=== PATIENT | female | born 1960 | race African-American/Black ===

== ENCOUNTER 2018-07-17 20:00 | Emergency (ER) | payer MEDICAID ==
[2018-07-17 20:06] VITALS: BP 146/91
--- NOTE | 2018-07-17 20:16 | EDPHY ---
H & P Time Seen by Provider: 07/17/18 20:09 HPI/ROS: CHIEF COMPLAINT: Wound check HISTORY OF PRESENT ILLNESS: 58-year-old female history of diabetes postop day 4 post right 4th toe and left for 2nd 3rd toe surgical amputation secondary to history of complications from diabetes who, performed at [facility], walked to the ER for wound check. She tripped and stubbed her feet today wants to ensure that the wounds are not infected or have dehisced. She has no complaints of underlying pain.. No fall from height. Bandages in place. PHYSICAL EXAM (Prior to examination, patient consented to physical exam, hands were washed and my usual and customary physical exam procedures followed) 1) GENERAL: Well-developed, well-nourished, alert and oriented. Appears to be in no acute distress. 2) HEAD: Normocephalic 3) HEENT: sclera anicteric 4) LUNGS: Breathing comfortably. 5) SKIN: bilateral feet wounds are granulating appropriately with no dehiscence , no foul smell, no signs of infection, no erythema, no underlying discomfort. Smoking Status: Former smoker Constitutional: Initial Vital Signs Temperature (C) 36.4 C 07/17/18 20:02 Heart Rate 97 07/17/18 20:02 Respiratory Rate 18 07/17/18 20:02 Blood Pressure 146/91 H 07/17/18 20:02 O2 Sat (%) 97 07/17/18 20:02 O2 Delivery Mode Room Air Allergies/Adverse Reactions: cefaclor [From [facility]] Allergy (Verified 07/17/18 20:06) Home Medications: Medication Instructions Recorded Albuterol 07/17/18 Atrovent Hfa (*) 07/17/18 Levemir 07/17/18 Prozac 10 MG (*) 07/17/18 Wellbutrin Sr 07/17/18 novoLOG 07/17/18 traZODone 07/17/18 MDM/Departure - Depart Disposition: Home, Routine, Self-Care Clinical Impression: Visit for wound check Condition: Good Instructions: Care For Your Stitches (ED) Additional Instructions: Return to the ER if you develop redness, swelling, discharge, warmth to the wound, red streaks going up your leg, or any other symptoms that concern you. Referrals: Follow-up, with your r surgeon at [facility] in 2 days [Other] - As per Instructions
== END 2018-07-17 20:51 | disposition home or self-care (01) ==
DX: Z48.00 Encounter for change or removal of nonsurgical wound dressing (principal); Z89.422 Acquired absence of other left toe(s); E11.9 Type 2 diabetes mellitus without complications

== ENCOUNTER 2018-09-07 12:12 | Emergency (ER) | payer MEDICAID ==
[2018-09-07] MEDS ORDERED: amLODIPine BESYLATE 5 MG TAB PO ONE (14:19)
--- NOTE | 2018-09-07 14:23 | EDPHY ---
H & P Stated Complaint: pt needs refil of inhalers/bp meds htn/whaley inf bilat toes Time Seen by Provider: 09/07/18 13:54 HPI/ROS: CHIEF COMPLAINT: Medication refill, concern for foot infection HISTORY OF PRESENT ILLNESS: 58-year-old female with hypertension, diabetes and oxygen-dependent COPD presents for a medication refill and concern for foot infection. She recently moved from [place] to [employer] and is staying in the senior care. She ran out of her usual blood pressure medications as well as her COPD a medications. She is also concerned about a possible foot infection. However, there is no drainage, erythema or tenderness of either foot. No fever. REVIEW OF SYSTEMS: complete 10 point ROS reviewed and is negative except for the noted elements in the HPI - Personal History Current Tetanus Diphtheria and Acellular Pertussis (TDAP): Yes - Medical/Surgical History Hx Asthma: No Hx Chronic Respiratory Disease: Yes Hx Diabetes: Yes Hx Cardiac Disease: No Hx Renal Disease: No Hx Cirrhosis: No Hx Alcoholism: No Hx HIV/AIDS: No Hx Splenectomy or Spleen Trauma: No Other PMH: bilateral toe amputations, DM, h pyloric, neuropathy, soraya, COPD htn asthma cirrhosis of liver - Social History Smoking Status: Former smoker Alcohol Use: Sober - Physical Exam Exam: General Appearance: Alert, pleasant Eyes: Pupils equal and round, no conjunctival pallor ENT, Mouth: Mucous membranes moist Neck: Normal inspection Respiratory: Lungs are clear to auscultation Cardiovascular: Regular rate and rhythm Gastrointestinal: Abdomen is soft and nontender Neurological: A&O, nonfocal exam Skin: Warm and dry Extremities: Right foot-amputations of the 2nd and 3rd toes, no erythema, warmth or drainage; left foot-amputations of the 1st 3 toes, no erythema, warmth or drainage Psychiatric: Fluctuating affect Constitutional: Initial Vital Signs Temperature (C) 37.3 C 09/07/18 12:30 Heart Rate 84 09/07/18 12:30 Respiratory Rate 18 09/07/18 12:30 Blood Pressure 180/92 H 09/07/18 12:30 O2 Sat (%) 92 09/07/18 12:30 O2 Delivery Mode Room Air Allergies/Adverse Reactions: cefaclor [From [facility]] Allergy (Verified 09/07/18 12:29) Home Medications: Medication Instructions Recorded Albuterol 07/17/18 Atrovent Hfa (*) 07/17/18 Levemir 07/17/18 Prozac 10 MG (*) 07/17/18 Wellbutrin Sr 07/17/18 novoLOG 07/17/18 traZODone 07/17/18 Albuterol [Proventil Inhaler HFA 2 puffs IH QID PRN #1 mdi 09/07/18 (*)] Beclomethasone Qvar 40 [Qvar 40 1 inh IH BID #1 mdi 09/07/18 Redihaler (*)] Cephalexin [Keflex (*)] 500 mg PO TID #21 cap 09/07/18 Fluticasone Propionate [Flovent 1 puffs IH DAILY #1 aer.w.adap 09/07/18 Hfa] Lisinopril 09/07/18 Medical Decision Making - Diagnostics Imaging Results: XRays bilateral feet: no evidence of osteomyelitis Imaging: I viewed and interpreted images myself ED Course/Re-evaluation: This pt presents for refill of medications and d/t concern for foot infection. No evidence of infection on exam. Keflex prescribed in case of worsening sx. Pt given her usual BP meds in ED, Lisinopril and Norvasc. Prescriptions written. - Data Points Medications Given: Discontinued Medications Amlodipine Besylate (Norvasc) 10 mg PO EDNOW ONE Stop: 09/07/18 14:20 Last Admin: 09/07/18 14:32 Dose: 10 mg Lisinopril (Zestril) 20 mg PO EDNOW ONE Stop: 09/08/18 14:20 Last Admin: 09/07/18 14:48 Dose: 20 mg Departure - Departure Disposition: Home, Routine, Self-Care Clinical Impression: Medication refill Hypertension Qualifiers: Hypertension type: essential hypertension Qualified Code(s): I10 - Essential ( primary) hypertension Condition: Good Instructions: Hypertension (ED), Medicine Refill (ED) Additional Instructions: There is no sign of foot infection today. Keep your appointment on Monday. Return with any concerns. Referrals: María Bailon PA [Primary Care Provider] - As per Instructions (Keep your appointment on Monday.) Prescriptions: Albuterol [Proventil Inhaler HFA (*)] 2 puffs IH QID PRN #1 mdi PRN Reason: Short Of Breath/Dyspnea Beclomethasone Qvar 40 [Qvar 40 Redihaler (*)] 1 inh IH BID #1 mdi Cephalexin [Keflex (*)] 500 mg PO TID #21 cap Fluticasone Propionate [Flovent Hfa] 1 puffs IH DAILY #1 aer.w.adap
[2018-09-07] MEDS ORDERED: LISINOPRIL 20 MG TAB ONE (14:47)
[2018-09-07 14:58] VITALS: BP 174/105
[2018-09-08] MEDS ORDERED: LISINOPRIL 20 MG TAB PO ONE (14:19)
== END 2018-09-07 14:57 | disposition home or self-care (01) ==
DX: Z76.0 Encounter for issue of repeat prescription (principal); I10 Essential (primary) hypertension; J44.9 Chronic obstructive pulmonary disease, unspecified; E11.9 Type 2 diabetes mellitus without complications; Z99.81 Dependence on supplemental oxygen; Z87.891 Personal history of nicotine dependence

== ENCOUNTER 2018-09-11 10:47 | Emergency (ER) | payer MEDICAID ==
[2018-09-11] MEDS ORDERED: IPRATROPIUM/ALBUTEROL 3 ML DEYVIAL IH ONE (11:47)
[2018-09-11 12:32] LABS: PLATELET COUNT 233 10^3/uL (150-400)
--- NOTE | 2018-09-11 12:51 | EDPHY ---
General - History Smoking Status: Former smoker Time Seen by Provider: 09/11/18 11:22 Narrative: CLINICAL IMPRESSION: Shortness of breath, interstitial lung disease, hypokalemia ASSESSMENT/PLAN: 58-year-old female with past medical history of hypertension, diabetes, chronic neuropathy, COPD, and asthma, relatively new to our area presents to the emergency department for the 2nd time in 4 days complaining of dyspnea. Patient is asking numerous times for prednisone believing this is a COPD exacerbation. She reportedly used 5 L of oxygen prior to relocation to [place] and has been working with [facility] to reestablish oxygen therapy. She arrives saturating 91% on room air. She has been compliant with inhalers but reports these are not helping her symptoms. She did have surgery to amputate 3 toes 3 weeks ago secondary to diabetic foot infection. No reported history of DVT or PE but she does have obvious edema to both legs which she reports is chronic. EKG shows inverted T-waves V4 through V6, unfortunately no prior EKG is available for comparison. Troponin is negative. Labs reveal no leukocytosis but a significant hypokalemia at 2.7, normal renal function. D- dimer quite elevated at 2.5 , and patient has an elevated BNP over 1400. CT angiogram reveals no evidence of pulmonary embolism but confirms chest x-ray findings of severe interstitial edema, small bilateral pleural effusions, no evidence of pneumonia. Patient is afebrile. Case discussed with Dr. Luz and admission was highly recommended however patient has adamantly refused this. She is asking strictly for prednisone only and even refused nebulizer treatments in the ED. I have explained that I am not confident that outpatient oral prednisone will alleviate all of her symptoms. However she would like to follow up with [facility] tomorrow which I encouraged. I also emphasized the importance of establishing her oxygen therapy. She was given potassium replacement in the ED and a prescription for additional potassium replacement at home. I discussed the risks of persistent or worsening hypokalemia. Patient was strongly encouraged to see PCP and have very low threshold for return to ED sooner for worsening symptoms as outlined in person and discharge papers. DIFFERENTIAL DX: Differential diagnosis includes but not limited to myocardial ischemia, pulmonary embolus, chest wall pain, COPD exacerbation, asthma exacerbation, pleural inflammation, musculoskeletal chest wall pain, aortic aneurysm, and pulmonary infectious causes. ED PROCEDURES: See lab and/or imaging results below ED COURSE: Seen and assessed by myself. Patient feels she is having is an exacerbation of COPD. However complains of orthopnea, dyspnea on exertion, chest discomfort, shortness of breath, and chronic lower extremity edema. Plan for EKG, IV, labs , chest x-ray, D-dimer, BNP 2:00 p.m.: CT scan read by Radiology. No evidence of pulmonary embolism. Severe interstitial lung disease noted, interstitial edema and small pleural effusions noted. Viral versus infectious. EKG with inverted T-waves V4 through V6 reviewed with Dr. Luz. Troponin 0.03. BNP elevated at 1400. Hypokalemia with potassium of 2.7, oral potassium replacement ordered here. Discussed and recommended admission with the patient who has refused. She would like to follow up with her primary care provider, María, at [facility] tomorrow. She has agreed to an initial IV dose of steroid here as well as a prescription for prednisone and potassium replacement. I have emphasized the importance of primary care follow-up in 24 hr without fail and patient agrees to contact them. Very low threshold for return to ED sooner as outlined in person and discharge papers. Case discussed at length with Dr. Luz. CHIEF COMPLAINT: Shortness of breath HPI: 58-year-old female with a history of diabetes, hypertension, COPD and asthma presents to the emergency department with 2 days of increased shortness of breath, orthopnea, chest discomfort, and dyspnea on exertion. Patient is 3 weeks postop amputation of several toes on the right foot secondary to diabetic foot infection. She had wound dressing placed yesterday and sutures removed yesterday. She has noted increased shortness of breath over the last 2 days associated with discomfort in the chest, difficulty lying flat, and feels as though she is having an exacerbation of her COPD. She has been compliant with her prescribed inhalers but reports "they are not working". She did not take a nebulizer treatment today. She is here requesting prednisone because that worked for her exacerbations in the past. She has not taken this for many years. She reports her glucose has been running in the 160s. No reported history of a DVT or PE. She reports chronic lower extremity swelling that she does not believe this changed or different. She does not report cardiac history. She states she quit smoking recently. She does not drink alcohol. PAST MEDICAL HISTORY: Hypertension, diabetes, diabetic foot infection requiring amputation, neuropathy , COPD, asthma See nurse/triage notes for additional history if applicable Pertinent Past Surgical History: Amputation of toes on both feet secondary to diabetes Family History: None reported Social History: Former smoker REVIEW OF SYSTEMS: All other systems negative Constitutional: No fever, no chills, appetite change. Eyes: No discharge, vision change ENT: No sore throat, congestion, ear pain. Cardiovascular: Positive for chest pain, no palpitations.] Respiratory: Positive for cough and shortness of breath. Gastrointestinal: No abdominal pain, no vomiting, diarrhea. Genitourinary: No hematuria, dysuria, flank pain, pelvic pain Musculoskeletal: No back pain, joint swelling, joint pain, myalgias. Skin: No rashes, color change. Neurological: No headache, dizziness, weakness. PHYSICAL EXAM: General Appearance: Alert, oriented, appropriate, cooperative, overweight NAD, well hydrated, non-toxic appearing, 91% on room air, respiratory rate of 22, afebrile no hypoxia. HEENT: TMs are clear bilaterally no perforation or FB, no injection, no evidence of serous or mucopurulent otitis. Oropharynx clear is no erythema or exudates, no tonsillar hypertrophy or asymmetry. Dentition without abnormality. Eyes: PERRLA, no acute vision change, nystagmus, swelling, discharge, pain or photosensitivity. Conjunctiva pink, no pallor or injection Neck: Supple, nontender, no lymphadenopathy, no midline pain, FROM, no meningismus. Respiratory: Diminished breath sounds throughout Cardiac: Regular rate and rhythm, no murmurs or gallops. Gastrointestinal: Abdomen is soft, nontender, bowel sounds normal, no masses/ hernia, no rigidity, guarding or focal peritoneal findings. Neurological: [ Alert and oriented x 3, CN 2-12 grossly intact Skin: Warm, dry, no rashes, no nodules on palpation. Musculoskeletal: Extremities are symmetrical, full range of motion, no tenderness, pitting edema noted to left greater than right extremity. No calf pain, swelling or warmth. deformity, swelling, or erythema. Psychiatric: Patient is oriented X 3, there is no agitation. MEDICAL DECISION MAKING: Patient was seen independently. Secondary supervising physician at time of evaluation was Dr. Luz. Diagnosis: Severe interstitial lung disease, shortness of breath, orthopnea, dyspnea on exertion, hypokalemia. New, requires workup Summary: See Assessment and Plan for summary of ED visit Clinical lab tests: ordered / reviewed. Independent visualization of images, tracing, or specimens: Yes. Decision to obtain medical records or history from someone other than the patient: No Review / Summarize previous medical records: Reviewed recent ED records Discussed patient with another provider: Discussed with Dr. Luz and Radiology Patient Progress: Fair, patient refused admission. (Aneesh Brennan) Medical Decision Making: I did not see this patient while she was in the emergency department. However her care was discussed with the PA while the patient was in the department. I agree with treatment plan and management (iDma Luz) - Objective Vital Signs: Initial Vital Signs Temperature (C) 37.0 C 09/11/18 11:02 Heart Rate 92 09/11/18 11:02 Respiratory Rate 22 H 09/11/18 11:02 Blood Pressure 174/84 H 09/11/18 11:02 O2 Sat (%) 91 L 09/11/18 11:02 O2 Delivery Mode Room Air Allergies/Adverse Reactions: cefaclor [From [facility]] Allergy (Verified 09/11/18 11:02) Home Medications: Medication Instructions Recorded Albuterol 07/17/18 Atrovent Hfa (*) 07/17/18 Levemir 07/17/18 Prozac 10 MG (*) 07/17/18 Wellbutrin Sr 07/17/18 novoLOG 07/17/18 traZODone 07/17/18 Albuterol [Proventil Inhaler HFA 2 puffs IH QID PRN #1 mdi 09/07/18 (*)] Beclomethasone Qvar 40 [Qvar 40 1 inh IH BID #1 mdi 09/07/18 Redihaler (*)] Cephalexin [Keflex (*)] 500 mg PO TID #21 cap 09/07/18 Fluticasone Propionate [Flovent 1 puffs IH DAILY #1 aer.w.adap 09/07/18 Hfa] Lisinopril 09/07/18 Potassium Chloride Po [Klor 40 meq PO DAILY 2 Days #4 pkt 09/11/18 Packets 20 meq (*)] predniSONE [Prednisone] 40 mg PO DAILY #20 tablet 09/11/18 Laboratory Results: Laboratory Results 09/11/18 12:20 09/11/18 12:20 Medications Given: Discontinued Medications Albuterol/Ipratropium (Duoneb) 3 ml IH EDNOW ONE Stop: 09/11/18 11:48 Last Admin: 09/11/18 12:28 Dose: Not Given Methylprednisolone Sodium Succinate (Solu-Medrol) 125 mg IVP EDNOW ONE Stop: 09/11/18 14:25 Last Admin: 09/11/18 14:44 Dose: 125 mg Potassium Chloride (Klor Packets) 40 meq PO EDNOW ONE Stop: 09/11/18 13:33 Last Admin: 09/11/18 13:49 Dose: 40 meq Point of Care Test Results: Chemistry 09/11/18 12:23 POC Troponin I 0.03 ng/mL ng/mL (0.00-0.08) Departure - Departure Disposition: Home, Routine, Self-Care Clinical Impression: Interstitial lung disease, Shortness of breath, Hypokalemia Condition: Good Instructions: Hypokalemia (ED), Shortness of Breath (ED) Additional Instructions: DISCHARGE INSTRUCTIONS FROM YOUR DOCTOR Thank you for visiting our emergency department today. You were treated by a physician criminal legal assistant today and your case was reviewed with our ED Attending physician. Please keep in mind that discharge from the emergency department does not mean that there is nothing wrong - it simply means that we have not identified an emergency condition that requires further evaluation or treatment in the hospital. You should always plan to follow up with primary care for re- evaluation of your condition in the next 2-3 days. If you have been referred to a specialist, please call as soon as possible (today or tomorrow) to schedule your follow up appointment at the appropriate time. DIAGNOSTIC WORKUP IN THE EMERGENCY DEPARTMENT TODAY INCLUDED EKG, CARDIAC ENZYMES, D-DIMER, BNP, LABORATORY EVALUATION, CHEST X-RAY AND CT ANGIOGRAM OF THE CHEST. YOU HAVE ABNORMAL EKG FINDINGS BUT A NORMAL CARDIAC ENZYME. CHEST X -RAY AND CT SCAN OF THE CHEST SHOW SEVERE INTERSTITIAL LUNG DISEASE, WITH INTERSTITIAL EDEMA AND PLEURAL EFFUSIONS. IT IS UNCLEAR IF THIS IS ACUTE VERSUS CHRONIC WE HAVE NO PRIOR COMPARISON. YOU ALSO HAVE A VERY LOW POTASSIUM LEVEL OF 2.7. POTASSIUM WAS GIVEN TO IN THE EMERGENCY DEPARTMENT AND A PRESCRIPTION WAS ALSO GIVEN. YOU MAY HAVE SOME SWELLING IN THE LEGS AND SHORTNESS OF BREATH DUE TO MILD CONGESTIVE HEART FAILURE WELL. GIVEN ALL OF THESE FINDINGS, ADMISSION WAS RECOMMENDED WHICH YOU HAVE REFUSED TODAY. I STRONGLY RECOMMEND THAT YOU SEE A PRIMARY CARE PROVIDER AT [facility] TOMORROW WITHOUT FAIL. PLEASE CALL FOR AN APPOINTMENT. IV STEROIDS WERE GIVEN IN THE ER, A PRESCRIPTION FOR PREDNISONE WAS PROVIDED AND A PRESCRIPTION FOR POTASSIUM WAS ALSO GIVEN. IT IS VERY IMPORTANT THAT YOU TAKE THIS. RETURN TO THE EMERGENCY DEPARTMENT FOR WORSENING SHORTNESS OF BREATH, CHEST PAIN, LIGHTHEADEDNESS OR SYNCOPAL EPISODES, FEVER, WORSENING COUGH, OR ANY OTHER CONCERNS. People present with illnesses and injuries in different ways, and it is always possible that we have missed something. You may always return for re-evaluation if symptoms worsen or if they are not improving or if you develop new/different symptoms. Again, thank you for choosing our emergency department. We hope that you feel better. Referrals: NONE *PRIMARY CARE P,. [Primary Care Provider] - As per Instructions [facility],. [Clinic] - 1 day without fail Prescriptions: Potassium Chloride Po [Klor Packets 20 meq (*)] 40 meq PO DAILY 2 Days #4 pkt predniSONE [Prednisone] 40 mg PO DAILY #20 tablet
[2018-09-11] MEDS ORDERED: IOPAMIDOL (ISOVUE 370) 100 ML BTL IV ONE (13:08)
[2018-09-11] MEDS ORDERED: POTASSIUM CL 20 MEQ PKT PO ONE (13:32)
[2018-09-11] MEDS ORDERED: methylPREDNISolone SOD SUCC 125 MG/2 ML VIAL IVP ONE (14:24)
[2018-09-11 14:55] VITALS: BP 166/101
--- NOTE | 2018-09-11 15:08 | CPEKG ---
Test Reason : OPEN Blood Pressure : / mmHG Vent. Rate : 082 BPM Atrial Rate : 082 BPM P-R Int : 183 ms QRS Dur : 092 ms QT Int : 406 ms P-R-T Axes : 074 037 143 degrees QTc Int : 475 ms Sinus rhythm Nonspecific T abnormalities, lateral leads Confirmed by Jazmin Luz ([id number]) on 09/11/2018 3:08:02 PM Referred By: JAZMIN LUZ Confirmed By:Jazmin Luz
== END 2018-09-11 14:56 | disposition home or self-care (01) ==
DX: J84.9 Interstitial pulmonary disease, unspecified (principal); J44.1 Chronic obstructive pulmonary disease with (acute) exacerbation; E87.6 Hypokalemia; J45.909 Unspecified asthma, uncomplicated; I10 Essential (primary) hypertension; E11.9 Type 2 diabetes mellitus without complications; Z89.421 Acquired absence of other right toe(s); Z87.891 Personal history of nicotine dependence
CPT/HCPCS: 84484-ER; 96374; J2930; Q9967

== ENCOUNTER 2018-10-09 18:49 | Inpatient (IN) | payer MEDICAID ==
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
[2018-10-09 19:44] LABS: PLATELET COUNT 262 10^3/uL (150-400)
[2018-10-09] MEDS ORDERED: LORazepam 1 MG TAB PO ONE (21:19)
[2018-10-09] MEDS ORDERED: LORazepam 1 MG TAB ONE (21:19)
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
--- NOTE | 2018-10-10 07:02 | ASMTTCLDSP ---
TLC Discharge Disposition Disposition: Answers: Admit Disposition Notes: Notes: In consultation with [facility] ED physician, Abhijeet Da Silva MD and on-call psychiatrist, Meggan Quinones MD, both concurred that pt appears to meet 27-65 criteria requiring psychiatric hospitalization as pt appears to be at risk of harm to self due to a mental illness condition. Pt was read the Patient Rights and Responsibilities Statement on 10/09/18 at 22:00 original placed on chart, and was given photocopy of Rights. Pt signed the Patient Rights. Was patient given the Answers: Yes Inpatient Behavioral Health Prohibited Belongings List while in the ED? For inpatient [facility] admission, the following psychiatrist agreed to accept patient for admission to Behavioral Health ([facility]): Hold initiated by: Answers: Psychiatrist Date Signed: 10/10/2018 07:01 AM Electronically Signed By:Jeremiah Long
[2018-10-10] MEDS ORDERED: ALBUTEROL 60 PUFFS/8 GM MDI IH PRN ×2 (08:39→11:22)
[2018-10-10] MEDS ORDERED: D50W 25 GM/50 ML SYR IVP PRN ×2 (08:41→11:22)
--- NOTE | 2018-10-10 08:42 | PDCONSULT ---
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 She reports feeling increasingly sad near the anniversary of her son's . She has been on an alcohol "cordon" the last 2 days and also inhaled cocaine yesterday evening. She denies any hallucinations. Recently re-located from [place] to [place] and does not have psychiatric care here. She reports being compliant with her medications. No recent fevers, chills, chest pain, dyspnea, abdominal pain, n/v/d, rashes, leg or abdominal swelling, or bleeding. PAST MEDICAL HISTORY: depression, ? schizoaffective disorder, PTSD, type 2 diabetes, peripheral neuropathy, COPD/asthma, HTN, cirrhosis of the liver (per patient this is related to prior strong etoh use; no imaging to confirm) PAST SURGICAL HISTORY: cholecystectomy MEDICATIONS: levemir 50 units nightly, novolog 14 units nightly, bupropion SR 150mg bid, fluoxetine 80mg daily, lisinopril (unknown dose), trazodone 150mg qhs , percocet 5/325 q6h prn, albuterol inhaler qid prn, Qvar inhaler bid, atrovent inhaler daily ALLERGIES: cefaclor SOCIAL HISTORY: lives with roommate. occasionally binges in alcohol but no regular/daily use. quit smoking tobacco years ago. occasional intranasal cocaine use but denies IVDU or other street drugs FAMILY HISTORY: none pertinent REVIEW OF SYSTEMS: 10 point review was negative except per HPI. VITALS: Reviewed. BP initially elevated with systolic at 170 but since improved to 140/80s. PHYSICAL EXAM: No acute distress, obese. Appears stated age. Anicteric sclera, eomi, perrl. No thyromegaly. Clear oropharynx. RRR, no murmurs. Lungs clear bilaterally. Abdomen soft and nontender. No rashes. No leg edema or JVD. CN 2- 12 intact, moving all extremities. Appropriate. LABORATORY STUDIES: Reviewed. WBC count of 12k, hemoglobin of 12 with MCV 89.8, platelets 262. Na 133, K 4.1, Cl 103, CO2 19 (anion gap 11), BUN 23, Cr 0.8, blood glucose 222, calcium 7.9. Beta HCG negative. Utox + for cocaine and marijuana. Serum ethyl alcohol negative. ASSESSMENT/PLAN: 1. Suicidal ideation, depression, schizoaffective d/o: Management per inpatient psychiatric team. She is being admitted to inpatient behavioral health. 2. Type 2 diabetes: Will continue home long-acting insulin at glargine 50 units daily (we do not have levemir on formulary). She reportedly takes 14 units of novolog nightly at home. I will hold this for now and start her on a sliding scale with [facility] blood sugar checks. 3. Leukocytosis: Suspect reactive in setting of cocaine. She has no localizing symptoms or signs of infection. No indication for further evaluation. 4. Normocytic anemia: Not bleeding. Recommend ongoing outpatient surveillance and evaluation with her PCP. 5. ? history of liver cirrhosis: Her platelets are normal. I will add on LFTs. She does appear compensated if she does carry the diagnosis of cirrhosis. 6. COPD vs asthma: No acute exacerbation. I have continued her home atrovent and Qvar inhalers. She can use albuterol inhaler PRN if short of breath. 7. Hypertension: I would continue her lisinopril once her medication reconciliation has been completed. 8. Hyponatremia: Very mild. Suspect due to poor PO intake. No further intervention required other than encouraging her to eat normally. 9. Peripheral neuropathy: Related to diabetes. Not on medications for this. I see no medical contraindications for Ms Macias's stay in the inpatient behavioral health unit. Thank you for this consult. Please do not hesitate to contact the internal medicine/hospitalist team if there should be further need for medical evaluation.
[2018-10-10] MEDS ORDERED: BECLOMETHASONE QVAR 40 REDIHALER 120 INH/10.6 GM MDI IH SCH (09:00)
[2018-10-10] MEDS ORDERED: IPRATROPIUM HFA INHALER IH SCH (09:00)
[2018-10-10] MEDS ORDERED: INSULIN GLARGINE 100 UNITS/ML UNIT SC SCH ×2 (09:00→11:00)
[2018-10-10] MEDS ORDERED: buPROPion 100 MG TAB PO ONE ×3 (09:00→13:15)
[2018-10-10] MEDS ORDERED: OLANZapine DISINTEGR 10 MG TAB PO PRN (11:45)
[2018-10-10] MEDS ORDERED: NICOTINE POLACRILEX 2 MG GUM B PRN (11:45)
[2018-10-10] MEDS ORDERED: LORazepam 0.5 MG TAB PO PRN (11:45)
[2018-10-10] MEDS ORDERED: INSULIN LISPRO 100 UNIT/ML SC SCH (12:00)
[2018-10-10] MEDS: INSULIN LISPRO 100 UNIT/ML SC SCH ×2 (12:28→17:44)
--- NOTE | 2018-10-10 13:05 | PDMN ---
Medical Necessity Medical necessity: Pt meets IP criteria per [employer] DEPARTMENT OPERATOR & MCG [id number]; est los >2 mn for eval/tx of major depressive disorder; admit for further monitoring, safety, crisis stabilization & med management; per order 10/10/18
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
[2018-10-10] MEDS: buPROPion SR 150 MG TAB PO SCH ×2 (15:57→21:43)
[2018-10-10] MEDS: LISINOPRIL 20 MG TAB PO SCH (16:11)
[2018-10-10] MEDS: GABAPENTIN 300 MG CAP PO SCH ×2 (16:11→21:13)
[2018-10-10] MEDS: oxyCODONE IR 5 MG TAB PO PRN ×2 (16:11→22:27)
--- NOTE | 2018-10-10 17:27 | WOCRNPDOC ---
ANNI Advanced Assessment Note - Skin Integrity Problem, Advanced Assess Left Second Finger Dressing Type: Open to Air Exudate Amount: Scant Exudate Characteristic(s): Purulent (per patient report) Karuna Wound Tissue: Erythema, Swollen Karuna Wound Swelling: Mild Wound Bed Color: Red Wound Bed Constitution: Scab Site Measurement - Head-to-Toe Length X Width X Depth (cm): 0.3x0.6x0.1 Skin Integrity Problem Comment: [place] shaped wound below nail on cuticle. It is very small and currently dried. Patient reports that she went to a nail salon to get her nails done and they "hit it". Area is fluctuant, painful, and mildly swollen and does appear infected. Patient may benefit from I and D of area along with antibiotics. Eran SHERIDAN in room. Discussed care with Dr. Cuevas and medical staff credentialing coordinator Jerrod. Plan to send patient to ED for evaluation by MD. Left Fifth Toe Diabetic Ulcer Dressing Type: Open to Air Exudate Amount: None Wound Bed Constitution: Red/[place] - Non Granular Tissue, Scab Site Measurement - Head-to-Toe Length X Width X Depth (cm): 1x1x0.2 Skin Integrity Problem Comment: Full thickness diabetic foot ulcer. Patient has had multiple amputations and has significant neuropathy. Wound is currently dried and it is not possible to visualize wound bed properly. Patient will likely need ampuation of digit in the near future. Does not appear to be actively infected. Patient should follow up with a associate producer for continued care. Right Foot Dressing Type: Open to Air Exudate Amount: Minimal Exudate Characteristic(s): Purulent Wound Bed Constitution: Scab Site Measurement - Head-to-Toe Length X Width X Depth (cm): 1.2x2.5 Skin Integrity Problem Comment: Surgical area from previously amputated second and third digit. Area draining pus from a tiny crack in the extensive scab that is present. Surrounding tissue non erythematic. Area not probed as patient is going back to the emergency dept for evaluation. Wound care will follow.
[2018-10-10] MEDS: INSULIN GLARGINE 100 UNITS/ML UNIT SC SCH (21:13)
[2018-10-10] MEDS: BECLOMETHASONE QVAR 40 REDIHALER 120 INH/10.6 GM MDI IH SCH (21:13)
[2018-10-11] MEDS: INSULIN LISPRO 100 UNIT/ML SC SCH ×3 (08:47→19:06)
[2018-10-11] MEDS: IPRATROPIUM HFA INHALER IH SCH ×2 (08:49→09:17)
[2018-10-11] MEDS: BECLOMETHASONE QVAR 40 REDIHALER 120 INH/10.6 GM MDI IH SCH ×4 (08:49→20:14)
[2018-10-11] MEDS: FLUoxetine 20 MG CAP PO SCH (08:56)
[2018-10-11] MEDS: buPROPion SR 150 MG TAB PO SCH ×2 (08:56→20:04)
[2018-10-11] MEDS: LISINOPRIL 20 MG TAB PO SCH (08:57)
[2018-10-11] MEDS: GABAPENTIN 300 MG CAP PO SCH ×3 (08:57→20:05)
[2018-10-11] MEDS: oxyCODONE IR 5 MG TAB PO PRN ×2 (09:10→20:15)
--- NOTE | 2018-10-11 11:13 | ASMTBHMTP ---
Master Treatment Plan Master Treatment Plan Answers: Depressed Mood with for: Suicidal Ideation Date: 10/11/2018 Diagnosis on Admission: Major Depressive Disorder, recurrent, severe 296.33 (F33.2) Expected length of stay: 3-5 Reason for admission: Notes: Pt is a 58 year old female who presented voluntarily to [facility] complaining of increased depression and suicidal ideaiton. It is the 1 year anniversary of her son's and pt states she wants to end her life to be with him and stated, " I know at this moment I wanna go. The pain is unbearable." Pt stated she woke up today and " I just couldn't get it together. I just wanted to end my life today. I just want to be with my baby." So her friend told her she needed to go and talk to someone. Pt stated she recently relocated from [place] to [place] and has not establishd any psychiatric care. Pt stated, " I need some help to deal with this stuff. My heart is just breaking. My baby's gone. I just gotta accept it and I just can't." Pt stated she has thought about overdosing on pills like she has in the past. Patient's stated presenting problems: Notes: "I lost my 19 y.o. son a year ago. I became suicidal at the one year anniversary. I feel like dying, I still feel this way. Last night I was talking to him. The pain is unbearable I want to go to heaven with him". Patient's goals for treatment: Notes: "Not being sad, coping with him that he is gone. Try to be happy again". Patient's strengths: Notes: "Nothing right now". Identify supports outside of hospital: Notes: No support. Discharge criteria: Notes: SI will resolve and ct. will have a plan to safely manage recurrent suicidal ideation. Initial disposition plan/considerations: Notes: Participate in unit activities. Work on follow up appointments. Master Treatment Plan Required Signatures Psychiatrist signature: Answers: Psychiatrist: RN on-shift signature: Answers: RN: Patient signature: Answers: Patient: Date Signed: 10/11/2018 11:12 AM Electronically Signed By:Ailyn Hanna
--- NOTE | 2018-10-11 11:21 | ASMTCMCOM ---
CM Note CM Note Notes: CC met with ct. to develop MTP. Estephania. was cooperative. She reported having SI due to the one year anniversary of her son's . moved from [place] to [place] a month ago and was staying at the [facility]. She has no MH providers in [place] but agreed to [facility] services and signed a RASHAWN for them. Her medications are being prescribe by [facility]. She signed a RASHAWN for them too. Date Signed: 10/11/2018 11:20 AM Electronically Signed By:Ailyn Hanna
[2018-10-11] MEDS: INSULIN GLARGINE 100 UNITS/ML UNIT SC SCH (20:04)
[2018-10-12] MEDS: buPROPion SR 150 MG TAB PO SCH ×2 (08:50→21:02)
[2018-10-12] MEDS: FLUoxetine 20 MG CAP PO SCH (08:50)
[2018-10-12] MEDS: GABAPENTIN 300 MG CAP PO SCH ×3 (08:50→21:03)
[2018-10-12] MEDS: INSULIN LISPRO 100 UNIT/ML SC SCH ×3 (08:53→17:11)
[2018-10-12] MEDS: LISINOPRIL 20 MG TAB PO SCH (08:56)
[2018-10-12] MEDS: BECLOMETHASONE QVAR 40 REDIHALER 120 INH/10.6 GM MDI IH SCH ×2 (10:43→21:01)
[2018-10-12] MEDS: IPRATROPIUM HFA INHALER IH SCH (10:44)
--- NOTE | 2018-10-12 12:51 | ASMTCMCOM ---
SABINA Note CM Note Notes: This literary writer coordinated with JOANIE to schedule a date/time upon discharge for the patient to retrieve her belongings. The patient requested 10/19 as the final day for [facility] to hold belongings. The patient expressed interest in outpatient treatment and discussed [facility]. The patient will require a Medicaid cab to her vehicle in [place] upon hospital discharge. She plans to continue living in her vehicle while connecting with community resources regarding housing, MH, etc. The patient calm and engaged with this literary writer. Date Signed: 10/12/2018 12:50 PM Electronically Signed By:Destiny Tomlinson
--- NOTE | 2018-10-12 14:32 | SOAPPROG ---
SOAP Progress Note Assessment/Plan: Assessment: Plan: 10/12/18 14:32 Mood: Remains low. She is compliant with meds, though isolating. This is likely due to paranoia. She is guarded about this, however, disclosing only her grief over the of her son. SI remains active with plan. Will CCM. Ulcers: Will follow wound care recs. Subjective: LATE ENTRY FOR 10/11/18 Pt seen, discussed with staff. Appreciate input from wound care and ED in management of her diabetic ulcers. She remains isolative, irritable. States she is "mad at God" and remains suicidal with "nothing to live for." States, " I know I would kill myself if I left her today. Maybe I should just do that. What do I have to live for? My son was all I had." Compliant with meds. Isolating from milieu, appears paranoid. MSE: Disheveled, guarded. Affect is restricted, dysphoric, irritable at times. Mood is "bad." TP is generally linear. TC reveals general paranoia. SI remains prominent with plan to "take my pills or get hit by a car." Objective: Vital Signs Temp Pulse Resp BP Pulse Ox 37.4 C 97 20 123/60 H 92 10/12/18 06:00 10/12/18 06:00 10/12/18 06:00 10/12/18 08:56 10/12/18 06:00 - Time Spent With Patient Time Spent With Patient: 25" ICD10 Worksheet Patient Problems: Problems Problem Status Onset Severe major depression Acute Suicidal ideation Acute Hypertension Acute Medication refill Acute
--- NOTE | 2018-10-12 14:38 | SOAPPROG ---
SOAP Progress Note Assessment/Plan: Assessment: Plan: 10/12/18 14:32 Mood: Remains low. She is compliant with meds, though isolating. This is likely due to paranoia. She is guarded about this, however, disclosing only her grief over the of her son. SI remains active with plan. Will CCM. Ulcers: Will follow wound care recs. 10/12/18 14:38 Mood: Remains depressed with SI. CCM. Ulcers: Await input from hospitalist. Pt is afebrile with no referable c/o's. Subjective: Pt seen, discussed with staff. Refuses to come into Treatment Team meeting this morning. She remains isolative, guarded, paranoid. She states she was up a lot last night due to vomiting and diarrhea. She reports no pain in feet and believes that they are fine in her assessment. Team questions why abx were not recommended. Hospitalist is consulted in re: to this. Pt remains focused on the of her son. States she is "mad at God." States , "I want to go see him and ask him why he took my son. He was a good boy. He didn't deserve that." I opened the discussion of gladys and she rejected that stating, "F--- that. He [God] shouldn't have done that." She states several times that she wants to "go to [facility] to see my son and talk to God." MSE: Poorly groomed, guarded, irritable. Affect is o/w restricted, dysphoric. Mood is "sad and bad." TP is generally linear. TC reveals continued paranoia , believing "no one wants to help me." SI persists with desire to to go to [facility]. Objective: Vital Signs Temp Pulse Resp BP Pulse Ox 37.4 C 97 20 123/60 H 92 10/12/18 06:00 10/12/18 06:00 10/12/18 06:00 10/12/18 08:56 10/12/18 06:00 - Time Spent With Patient Time Spent With Patient: 25" ICD10 Worksheet Patient Problems: Problems Problem Status Onset Severe major depression Acute Suicidal ideation Acute Hypertension Acute Medication refill Acute
[2018-10-12] MEDS: INSULIN GLARGINE 100 UNITS/ML UNIT SC SCH (21:04)
--- NOTE | 2018-10-12 21:25 | HOSPPROG ---
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 Old records reviewed and summarized as above Subjective: no significant overnight events Objective: Vital Signs Temp Pulse Resp BP Pulse Ox 37.4 C 97 20 123/60 H 92 10/12/18 06:00 10/12/18 06:00 10/12/18 06:00 10/12/18 08:56 10/12/18 06:00 awake alert anicteric mmm rrr no mrg cta b bilaterl feet with multiple amputations and chronic wound ICD10 Worksheet Patient Problems: Problems Problem Status Onset Medication refill Acute Hypertension Acute Suicidal ideation Acute Severe major depression Acute
[2018-10-12] MEDS: MAG HYDROX/AL HYDROX/SIMETH 30 ML UDCUP PO PRN (22:11)
[2018-10-12] MEDS: IBUPROFEN 600 MG TAB PO PRN (22:16)
[2018-10-13] MEDS: INSULIN LISPRO 100 UNIT/ML SC SCH ×3 (09:21→17:13)
[2018-10-13] MEDS: buPROPion SR 150 MG TAB PO SCH ×2 (09:22→20:45)
[2018-10-13] MEDS: BECLOMETHASONE QVAR 40 REDIHALER 120 INH/10.6 GM MDI IH SCH ×2 (09:22→21:12)
[2018-10-13] MEDS: LISINOPRIL 20 MG TAB PO SCH (09:22)
[2018-10-13] MEDS: GABAPENTIN 300 MG CAP PO SCH ×3 (09:22→20:45)
[2018-10-13] MEDS: FLUoxetine 20 MG CAP PO SCH (09:22)
[2018-10-13] MEDS: IPRATROPIUM HFA INHALER IH SCH (09:23)
[2018-10-13] MEDS: MAGNESIUM HYDROXIDE 30 ML UDCUP PO PRN (10:02)
[2018-10-13] MEDS: IBUPROFEN 600 MG TAB PO PRN (12:25)
[2018-10-13] MEDS: ACETAMINOPHEN 325 MG TAB PO PRN (15:55)
--- NOTE | 2018-10-13 16:31 | ASMTCMCOM ---
CM Note CM Note Notes: Pt. reports "doing okay". Pt. stated she needs to open a wound on her finger to drain it. Pt. stated she slept "not very well", adding she didn't take her trazodone last night, stating she will take it tonight. Pt. reports no issues with her current medications. Pt. stated percocet made her throw up, stating IBP helps. Pt. reports no issues with her feet. Pt. stated she is getting enough to eat and attending groups. Pt. shared about her son, who one year ago. CC and Pt. discussed ways to celebrate her son's upcoming birthday. Pt. denied HI, AVH and paranoia. Pt. reports some SI, stating "if I had the oppritunity". Pt. stated she will come to staff if having SI. Pt. stated she wants to "be with my baby". RN notified. Pt. approached CC later asking if staff could go get pt's property from the [facility]. Pt. stated she has no one in the community who could get her items. Pt. signed an RASHAWN for [facility] for CC to call and ask about options. Pt. presents as alert, slightly unkempt, polite, and cooperative. Staff report pt. sleeping 7 hours and refusing her trazodone last night due to the dosage. CC to reach out to P on Monday about follow up appointments for pt. CC to attempt to schedule follow up appointment with pt's PCP at [facility]. Date Signed: 10/13/2018 04:30 PM Electronically Signed By:Yuliana Berman
--- NOTE | 2018-10-13 17:59 | SOAPPROG ---
SOAP Progress Note Assessment/Plan: Assessment: Per Dr. Andrew's notes: 10/12/18 14:32 Mood: Remains low. She is compliant with meds, though isolating. This is likely due to paranoia. She is guarded about this, however, disclosing only her grief over the of her son. SI remains active with plan. Will CCM. Ulcers: Will follow wound care recs. 10/12/18 14:38 Mood: Remains depressed with SI. CCM. Ulcers: Await input from hospitalist. Pt is afebrile with no referable c/o's. Subjective: Pt seen, discussed with staff. Refuses to come into Treatment Team meeting this morning. She remains isolative, guarded, paranoid. She states she was up a lot last night due to vomiting and diarrhea. She reports no pain in feet and believes that they are fine in her assessment. Team questions why abx were not recommended. Hospitalist is consulted in re: to this. Pt remains focused on the of her son. States she is "mad at God." States , "I want to go see him and ask him why he took my son. He was a good boy. He didn't deserve that." I opened the discussion of gladys and she rejected that stating, "F--- that. He [God] shouldn't have done that." She states several times that she wants to "go to [facility] to see my son and talk to God." MSE: Poorly groomed, guarded, irritable. Affect is o/w restricted, dysphoric. Mood is "sad and bad." TP is generally linear. TC reveals continued paranoia , believing "no one wants to help me." SI persists with desire to to go to [facility]. WEEKEND PLAN: 10/13/18 17:55 1. Hospitalist saw patient on 10/12 and concluded chronic wounds on toes did not look "actively infected" and did not recommend any additional treatment. Hospitalist noted that patient has had multiple infections and toe amputations in past d/t DM, and may need further amputations. 2. Patient is less irritable and hostile today. She reports decrease in thoughts of suicide and no intent while in hospital. 3. Patient requested lower dose of trazodone at night since she had hard time waking up this AM. 4. VOL Subjective: Patient was napping in her room. She reports feeling "better" today, though still c/o chronic wounds including toes and fingers. She would like to take less trazodone tonight b/c it made her too sedated this AM. She reports SI is " 5 out of 10," but denies any plan or intent to hurt herself in hospital. Objective: Vital Signs Temp Pulse Resp BP Pulse Ox 36.7 C 86 20 187/91 H 92 10/13/18 06:00 10/13/18 06:00 10/13/18 06:00 10/13/18 06:00 10/12/18 06:00 MSE: Affect: Less irritable Mood: "OK" TP: Linear TC: Has SI, but no plan or intent currently Perception: Denies any AH/VH Insight/Judgment: Poor - Time Spent With Patient Time Spent With Patient: 15" - Pending Discharge Pending Discharge Within 24 Hours: No Pending Discharge Within 48 Hours: No ICD10 Worksheet Patient Problems: Problems Problem Status Onset Severe major depression Acute Suicidal ideation Acute Hypertension Acute Medication refill Acute
[2018-10-13] MEDS: MAG HYDROX/AL HYDROX/SIMETH 30 ML UDCUP PO PRN (18:05)
[2018-10-13] MEDS: INSULIN GLARGINE 100 UNITS/ML UNIT SC SCH (20:45)
[2018-10-13] MEDS: traZODone 100 MG TAB PO SCH (20:45)
[2018-10-14] MEDS: LISINOPRIL 20 MG TAB PO SCH (08:32)
[2018-10-14] MEDS: INSULIN LISPRO 100 UNIT/ML SC SCH ×3 (08:32→17:51)
[2018-10-14] MEDS: FLUoxetine 20 MG CAP PO SCH (08:32)
[2018-10-14] MEDS: GABAPENTIN 300 MG CAP PO SCH ×3 (08:32→20:35)
[2018-10-14] MEDS: buPROPion SR 150 MG TAB PO SCH ×2 (08:32→20:35)
[2018-10-14] MEDS: IBUPROFEN 600 MG TAB PO PRN ×2 (08:50→21:01)
[2018-10-14] MEDS: ACETAMINOPHEN 325 MG TAB PO PRN (08:50)
[2018-10-14] MEDS: BECLOMETHASONE QVAR 40 REDIHALER 120 INH/10.6 GM MDI IH SCH ×2 (08:50→21:00)
[2018-10-14] MEDS: IPRATROPIUM HFA INHALER IH SCH (09:58)
[2018-10-14] MEDS: MAGNESIUM HYDROXIDE 30 ML UDCUP PO PRN (12:59)
[2018-10-14] MEDS: MAG HYDROX/AL HYDROX/SIMETH 30 ML UDCUP PO PRN (13:01)
--- NOTE | 2018-10-14 13:34 | ASMTCMCOM ---
CM Note CM Note Notes: Pt. asked CC to call [facility] again about pt's property. Pt. reports she would like a Medicaid taxi to take her to [place] where her truck is located. Pt. reports she has 3 suitcases and a TV at the [facility]. Pt. reports no one has come over about her finger. Pt. stated she is getting enough to eat and is attending groups, adding she likes goals group. Pt. reports she is "slowly processing, trying not to think of suicide". Pt. stated she feels suicidal whenever she thinks about her son. Pt. reports her son was killed in a car accident. Pt. reports her goal is "to not be sad" and her long-term goal is "not to miss my son so much". Pt. reports "feel okay" today. Pt. stated she is having less SI compared to yesterday, rating herself an 8/10. Pt. reports she would attempt suicide if she had the opportunity. Pt. denied HI, AVH and paranoia .Pt. reports taking a hot shower today. Pt. reports wanting her gabapentin increased to 600mg. Pt. stated she plans to discharge sometime this coming week. Pt. requested custodial around, but not in, [place]. Pt. presents as alert, calm, friendly, and cooperative. Staff report pt. sleeping 10.5 hours and being medication compliant. Pt. has a follow up appointment with P on 10/17/18 @ 14:30. Date Signed: 10/14/2018 01:34 PM Electronically Signed By:Yuliana Berman
[2018-10-14] MEDS: FAMOTIDINE 20 MG TAB PO SCH ×2 (15:59→20:35)
[2018-10-14] MEDS: HYDROCHLOROTHIAZIDE 25 MG TAB PO SCH (16:00)
--- NOTE | 2018-10-14 17:20 | SOAPPROG ---
SOAP Progress Note Assessment/Plan: Assessment: Per Dr. Andrew's notes: 10/12/18 14:32 Mood: Remains low. She is compliant with meds, though isolating. This is likely due to paranoia. She is guarded about this, however, disclosing only her grief over the of her son. SI remains active with plan. Will CCM. Ulcers: Will follow wound care recs. 10/12/18 14:38 Mood: Remains depressed with SI. CCM. Ulcers: Await input from hospitalist. Pt is afebrile with no referable c/o's. Subjective: Pt seen, discussed with staff. Refuses to come into Treatment Team meeting this morning. She remains isolative, guarded, paranoid. She states she was up a lot last night due to vomiting and diarrhea. She reports no pain in feet and believes that they are fine in her assessment. Team questions why abx were not recommended. Hospitalist is consulted in re: to this. Pt remains focused on the of her son. States she is "mad at God." States , "I want to go see him and ask him why he took my son. He was a good boy. He didn't deserve that." I opened the discussion of gladys and she rejected that stating, "F--- that. He [God] shouldn't have done that." She states several times that she wants to "go to the [facility] to see my son and talk to God." MSE: Poorly groomed, guarded, irritable. Affect is o/w restricted, dysphoric. Mood is "sad and bad." TP is generally linear. TC reveals continued paranoia , believing "no one wants to help me." SI persists with desire to to go to the [facility]. WEEKEND PLAN: 10/13/18 17:55 1. Hospitalist saw patient on 10/12 and concluded chronic wounds on toes did not look "actively infected" and did not recommend any additional treatment. Hospitalist noted that patient has had multiple infections and toe amputations in past d/t DM, and may need further amputations. 2. Patient is less irritable and hostile today. She reports decrease in thoughts of suicide and no intent while in hospital. 3. Patient requested lower dose of trazodone at night since she had hard time waking up this AM. 4. VOL 10/14/18 17:17 1. Patient much less irritable today. She presents calm, pleasant and polite. 2. Patient says she is not bothered as much with thoughts of suicide. 3. Patient very focused on getting her belongings from safe house where she had been staying. 4. Patient had elevated BP at 175/85. She had been taking Zestoretic at home, but was only started on Lisinopril 20mg in hospital. added HCTZ 25mg, the same dose she was taking at home. 5. VOL Subjective: Patient more pleasant, polite and cooperative today. She requested CC contact the safe house where she was staying to find out if they can deliver her belongings to her before she discharges. She plans to take bus to [place] to collect her vehicle. Patient continues to tell staff that it's the anniversary of her son's . However, her story about how her son keeps changing. She told one staff member that her son from suicide. But she told another staff person that he in car accident. Today, she says she is having "less" suicidal thoughts. Her BP was elevated this AM, but patient denied heart palpitations, JAY, N/V, sweating, dizziness and vision changes. Objective: Vital Signs Temp Pulse Resp BP Pulse Ox 37 C 91 20 206/106 H 91 L 10/14/18 06:00 10/14/18 06:00 10/14/18 06:00 10/14/18 16:00 10/14/18 06:00 MSE: Affect: Calmer, less depressed Mood: "OK" TP: Linear, goal-directed TC: "Less" SI, no HI, no paranoia Insight/Judgment: Fair - Time Spent With Patient Time Spent With Patient: 15" - Pending Discharge Pending Discharge Within 24 Hours: No Pending Discharge Within 48 Hours: No ICD10 Worksheet Patient Problems: Problems Problem Status Onset Severe major depression Acute Suicidal ideation Acute Hypertension Acute Medication refill Acute
[2018-10-14] MEDS: traZODone 100 MG TAB PO SCH (20:35)
[2018-10-14] MEDS: INSULIN GLARGINE 100 UNITS/ML UNIT SC SCH (20:36)
[2018-10-14] MEDS ORDERED: FAMOTIDINE 20 MG TAB PO SCH (21:00)
[2018-10-15] MEDS: FLUoxetine 20 MG CAP PO SCH (08:40)
[2018-10-15] MEDS: HYDROCHLOROTHIAZIDE 25 MG TAB PO SCH (08:42)
[2018-10-15] MEDS: GABAPENTIN 300 MG CAP PO SCH ×3 (08:42→20:33)
[2018-10-15] MEDS: buPROPion SR 150 MG TAB PO SCH ×2 (08:42→20:33)
[2018-10-15] MEDS: INSULIN LISPRO 100 UNIT/ML SC SCH ×3 (08:42→18:50)
[2018-10-15] MEDS: FAMOTIDINE 20 MG TAB PO SCH ×2 (08:43→20:33)
[2018-10-15] MEDS: ACETAMINOPHEN 325 MG TAB PO PRN (08:44)
[2018-10-15] MEDS: LISINOPRIL 20 MG TAB PO SCH (08:45)
[2018-10-15] MEDS: IPRATROPIUM HFA INHALER IH SCH (08:57)
[2018-10-15] MEDS ORDERED: HYDROCHLOROTHIAZIDE 25 MG TAB PO SCH (09:00)
[2018-10-15] MEDS: BECLOMETHASONE QVAR 40 REDIHALER 120 INH/10.6 GM MDI IH SCH ×2 (10:25→20:37)
--- NOTE | 2018-10-15 11:27 | SOAPPROG ---
SOAP Progress Note Assessment/Plan: Assessment: Plan: 10/12/18 14:32 Mood: Remains low. She is compliant with meds, though isolating. This is likely due to paranoia. She is guarded about this, however, disclosing only her grief over the of her son. SI remains active with plan. Will CCM. Ulcers: Will follow wound care recs. 10/12/18 14:38 Mood: Remains depressed with SI. CCM. Ulcers: Await input from hospitalist. Pt is afebrile with no referable c/o's. 10/15/18 11:27 Mood: Improved. CCM. Finalize d/c plan. Subjective: Pt seen, discussed with staff, chart reviewed. She reports an uneventful weekend with overall improved mood. She states she is unable to return to the long-term that she was staying at and has no other plan at this point. Interviewed in Treatment Team meeting today and the team discussed d/c planning with her. She remains compliant with meds. Feet look good. MSE: Affect is euthymic, smiling, laughing, stable, approp. Mood is "good." TP is linear. TC reveals no psychosis. States, "I still have some bad thoughts." Describes these as "much better" than on admission. Objective: Vital Signs Temp Pulse Resp BP Pulse Ox 37.2 C 83 20 160/84 H 94 10/15/18 06:00 10/15/18 06:00 10/15/18 06:00 10/15/18 06:00 10/15/18 06:00 - Time Spent With Patient Time Spent With Patient: 25" ICD10 Worksheet Patient Problems: Problems Problem Status Onset Severe major depression Acute Suicidal ideation Acute Hypertension Acute Medication refill Acute
--- NOTE | 2018-10-15 12:11 | ASMTCMCOM ---
CM Note CM Note Notes: Pt. reports feeling "not good, had a nightmare about my son". Pt. reports staying up after her dream. Pt. reports she is possibly developing a cold. Pt. reports getting enough to eat and attending groups. Pt. reports "little less" SI. Pt. denied HI and AVH. Pt. reports "little bit" paranoia, about "people talking about me". Pt. reports wanting to increase her Gabapentin to 600mg TID. Pt. requested a gas voucher to help her get her truck in [place] and return to [place] for her [facility] appointment on Monday. Pt. asked CC to call [facility] and inform them she will be discharging on Monday. Pt. presents as alert, mostly calm, slightly depressed, good eye contact, and cooperative. Staff report pt. sleeping 7 hours and being medication compliant. Pt. has a follow up appointment with [facility] on 10/17/18 @14:30. Date Signed: 10/15/2018 12:10 PM Electronically Signed By:Yuliana Berman
--- NOTE | 2018-10-15 12:39 | ASMTCMCOM ---
CM Note CM Note Notes: Shantelle will discharge tomorrow. She will take a Medicaid transport to [place], [address] [facility], to pickle maker her truck. [facility] CM gave her $10 for gas for her truck to get her back to [place]. She will go to the [facility] at [address] [place] [address]; once through [facility] she will likely be accepted into the program. Shantelle states that the [facility] purchased a bus ticket for her to go back to [facility] where her family lives. Shantelle will likely stay at the [facility] until 10/26 (bus date). Nayana Valdez RN notified and will follow on an outpatient basis. Date Signed: 10/15/2018 12:38 PM Electronically Signed By:Erika Lee RN
[2018-10-15] MEDS: IBUPROFEN 600 MG TAB PO PRN (15:38)
--- NOTE | 2018-10-15 17:48 | WOCRNPDOC ---
WOCRN Advanced Assessment Note - Skin Integrity Problem, Advanced Assess Left Second Finger Dressing Type: Open to Air Skin Integrity Problem Comment: Finger no longer erythematic and swollen. Per patient the area was I and D'd in the emergency dept recently. Nail is turning white and will likely fall off. Patient would like the nail removed and may visit the ED again as tin flopper will not remove the nail. Left Fifth Toe Diabetic Ulcer Dressing Type: Band Aid Dressing Description: Clean/Dry, Intact Exudate Amount: Scant Exudate Characteristic(s): Serous Integumentary Issue Intervention: Dressing Changed Wound Bed Constitution: Granulation Tissue (100%) Wound Edges: Not Attached (lifted up from wound edges) Site Measurement - Head-to-Toe Length X Width X Depth (cm): 1.2x1x0.2 Skin Integrity Problem Comment: Full thickness neuropathic ulcer with a clean wound bed. Does not appear infected. Some of the edges are peeling off the wound bed as the callous around the wound softens. Mechanically debrided the area to patient tolerance. Silvasorb applied to wound bed and covered with bandaid. Patient reports that she wears tennis shoes most of the time and does not have specialty inserts for them. Importance of foot care and appropriate footwear emphasized. Right Foot Dressing Type: Open to Air Karuna Wound Swelling: Mild Wound Bed Constitution: Scab Site Measurement - Head-to-Toe Length X Width X Depth (cm): 0.2x0.2xscab Skin Integrity Problem Comment: Pinpoint scab over 3rd metatarsal is no longer purulent. Much of the eschar/scab that was seen on previous assessment has been cleaned off. Surgical site is non infected and healing appropriately. Will cover with bandaid for protection. Patient wanted silvasorb applied to scab. Explained that the area should remain non-soft/moistened and dry.
[2018-10-15] MEDS: INSULIN GLARGINE 100 UNITS/ML UNIT SC SCH (20:33)
[2018-10-15] MEDS: traZODone 100 MG TAB PO SCH (20:33)
[2018-10-16 06:43] VITALS: BP 143/83
[2018-10-16] MEDS: INSULIN LISPRO 100 UNIT/ML SC SCH ×2 (08:21→12:30)
[2018-10-16] MEDS: FLUoxetine 20 MG CAP PO SCH (08:22)
[2018-10-16] MEDS: buPROPion SR 150 MG TAB PO SCH (08:22)
[2018-10-16] MEDS: FAMOTIDINE 20 MG TAB PO SCH (08:23)
[2018-10-16] MEDS: HYDROCHLOROTHIAZIDE 25 MG TAB PO SCH (08:23)
[2018-10-16] MEDS: LISINOPRIL 20 MG TAB PO SCH (08:23)
[2018-10-16] MEDS: GABAPENTIN 300 MG CAP PO SCH (08:23)
[2018-10-16] MEDS: IPRATROPIUM HFA INHALER IH SCH (08:35)
[2018-10-16] MEDS: BECLOMETHASONE QVAR 40 REDIHALER 120 INH/10.6 GM MDI IH SCH (08:35)
--- NOTE | 2018-10-16 12:27 | ASMTBHDC ---
Notes Note: Notes: Pt. reports she is "waiting on the director". PT. stated she can pick her items up once she has her truck. Pt. stated she is feeling "good" today, adding she was able to read some, which she enjoys. Pt. reports sleeping "good", adding she did not have any nightmares. Pt. reports getting enough to eat, adding she "don't eat a lot". Pt. reports managing her blood sugars well. Pt. reports no issues while on the unit. Pt. reports no concerns with discharging. PT. stated she is able to get to her appointment on Monday. Pt. reports being able to fill and take her medications an prescribed. Pt. reports "just a little" SI, adding it is "going away". PT. denied HI, AVH and paranoia. Pt. presents as alert, calm, focused on discharge, polite, positive about discharge, and cooperative. Staff report pt. sleeping 9 hours and being medication compliant. Pt. will discharge today, taking a cab to get her trunk, then returning to get her property from [facility], and then will do coordinated entry. Pt. has a follow up with [facility] 10/17/18 @ 1400. Date Signed: 10/16/2018 12:27 PM Electronically Signed By:Yuliana Berman
--- NOTE | 2018-11-07 20:12 | BDS ---
[f rep st] BEHAVIORAL HEALTH DISCHARGE SUMMARY REASON FOR ADMISSION: Patient is a 58-year-old female who presented to the emergenc y department requesting hospitalization due to increased depression and thoughts of suicide. She rep orted being on a "2-day cordon" of alcohol and cocaine, having left her place at a local [place]. She stated it was the anniversary of her son's in a car accident and that this was the primary reason she was using substances and feeling suicidal. A full description of the even ts preceding admission can be found in her admission history dated 10/10/2018. ADMITTING DIAGNOSES: 1. Schizoaffective disorder. 2. Posttraumatic stress disorder by history. 3. Major depressive disorder by history. 4. Bipolar disorder by history. 5. Possible malingering alcohol use disorder, severity unknown. 6. Cannabis use disorder, severity unknown. 7. Cocaine use disorder, severity unknown. ADMITTING PHYSICAL EXAMINATION: Performed by Dr. Riky Chavez, showed several longstanding chroni c illnesses with no acute exacerbation. ADMISSION LABORATORY: CBC showed white count of 12.01, H and H low at 12.0 and 36.0 with a normal MC V at 89.8. HOSPITAL COURSE: Patient was admitted to the behavioral health services inpatient unit on an M1 hold . She was withdrawn, preferring to remain in her room initially, and she slept a lot. She did event ually come out and had numerous demands for food and other supports. She had wounds on her feet wher e she had had some toes amputated and had diabetic pressure ulcers as well. She was seen by Wound Ca re and no need for antibiotics was noted. She was treated by Wound Care throughout her stay. When I met with her, she described herself as feeling depressed and suicidal and talked about the of her 19-year-old son 2 years ago. She stated numerous times that she was "angry at God" and that she did not feel like she would ever get over it. She requested continuing her previous medications whic h included Prozac, Wellbutrin and gabapentin. The gabapentin was for her diabetic peripheral neuropa thy, but she also felt like it helped with her mood and anxiety. These were restarted at her previou s doses and she tolerated them well. Patient's hospitalization was uncomplicated. She definitely seemed to have plenty of secondary gain but was cooperative and was able to direct the treatment team into helping with her many social needs . Ultimately, she was not able to return to the [facility] as she had been there too long already an d was able to arrange coordinated entry to the [facility]. CONDITION AT DISCHARGE: Stable. Her affect was euthymic, stable and appropriate. She was experienc ing no psychosis. She was voicing no thoughts of suicide, homicide, or violence. DISCHARGE DIAGNOSES: 1. Unspecified depressive disorder. No evidence of psychosis. 2. Homelessness. 3. Severe poorly controlled insulin-dependent diabetes. 4. Diabetic foot ulcers. 5. Diabetic peripheral neuropathy. 6. Hypertension. 7. Obesity. 8. Recent suicidal thoughts. DISCHARGE MEDICATIONS: Pepcid 20 mg b.i.d., gabapentin 300 mg t.i.d., Lantus 50 units subcu at h.s., lispro on a sliding scale q.a.c., Wellbutrin SR 150 mg b.i.d., Qvar inhaler 1 puff b.i.d., albuterol inhaler 2 puffs q.i.d. p.r.n., fluoxetine 80 mg daily, Atrovent inhaler 1 puff daily, trazodone 150 mg at h.s., and lisinopril/hydrochlorothiazide 20/25 one daily. DISPOSITION: Patient left the hospital of her own accord in a cab to go get her vehicle and obtain h er belongings prior to going to coordinated entry. Attitude at discharge was happy. LEGAL COURSE: Patient was converted to a voluntary status at the expiration of her M1 hold. The patient was a full code throughout her stay. There are no pending labs or studies at the time of her discharge. The patient was given written instructions as to the times and dates of her followup appointments at time of discharge. The patient was administered alcohol, nicotine, cannabis, and metabolic screenings. She was not inte rested in any further referrals after brief interventional counseling. /[id number]/MODL
== END 2018-10-16 14:00 | disposition home or self-care (01) | DRG 881 ==
LOC: BBEH 10-10 11:05
PROVIDERS: ADMIT Registered Nurse; ATTEND Registered Nurse
DX: F32.9 Major depressive disorder, single episode, unspecified (principal); F25.9 Schizoaffective disorder, unspecified; R45.851 Suicidal ideations; E87.1 Hypo-osmolality and hyponatremia; E11.40 Type 2 diabetes mellitus with diabetic neuropathy, unspecified; E11.621 Type 2 diabetes mellitus with foot ulcer; J44.9 Chronic obstructive pulmonary disease, unspecified; I10 Essential (primary) hypertension; Z89.421 Acquired absence of other right toe(s); Z79.4 Long term (current) use of insulin
CPT/HCPCS: 80305; G0480; J1815

== ENCOUNTER 2018-10-10 18:35 | Emergency (ER) | payer MEDICAID ==
--- NOTE | 2018-10-10 19:27 | EDPHY ---
H & P Stated Complaint: toe and finger issues - Personal History Current Tetanus Diphtheria and Acellular Pertussis (TDAP): Unsure - Medical/Surgical History Hx Asthma: No Hx Chronic Respiratory Disease: Yes Hx Diabetes: Yes Hx Cardiac Disease: No Hx Renal Disease: No Hx Cirrhosis: Yes Hx Alcoholism: No Hx HIV/AIDS: No Hx Splenectomy or Spleen Trauma: No Other PMH: bilateral toe amputations, DM, h pyloric, neuropathy, soraya, COPD htn asthma cirrhosis of liver, Depression, PTSD, Schziophrenia - Social History Smoking Status: Current some day smoker Time Seen by Provider: 10/10/18 18:41 HPI/ROS: CHIEF COMPLAINT: Evaluation left index finger paronychia HISTORY OF PRESENT ILLNESS: 58-year-old female history of bipolar disorder, schizoaffective disorder, diabetes, history of diabetic peripheral neuropathy and multiple toe amputations, currently residing in the inpatient psychiatric unit at [facility] for suicidal ideation was seen by the wound care team this afternoon and they recommend she go to the ER for evaluation of possible paronychia left index finger. Patient states that she had her nails done a few days ago and is notice tenderness on the cuticle of the left index finger. He also requested we evaluate her bilateral foot wounds noting in that on the patient's right foot there was an area draining pus from a tiny crack in the extensive scab. PRIMARY CARE PROVIDER: REVIEW OF SYSTEMS: 10 systems reviewed and negative with the exception of the elements mentioned in the history of present illness PAST MEDICAL & SURGICAL HISTORY: bipolar disorder. Schizoaffective disorder. Diabetes. Peripheral neuropathy. Multiple toe amputations. SOCIAL HISTORY: History of alcoholism, denies acute alcohol use PHYSICAL EXAM (Prior to examination, patient consented to physical exam, hands were washed and my usual and customary physical exam procedures followed) 1) GENERAL: Well-developed, well-nourished, alert and oriented. Appears to be in no acute distress. Sleeping but easily woken 2) HEAD: Normocephalic, atraumatic 3) HEENT: Pupils equal, round, reactive to light bilaterally. Sclera anicteric. 4) NECK: Full range of motion, no meningeal signs. 5) LUNGS: Clear auscultation bilaterally, no wheezes, no rhonchi, no retractions. 6) HEART: Regular rate and rhythm, no murmur, no heave, no gallop. 7) ABDOMEN: No guarding, no rebound, no focal tenderness, negative McBurney's, negative Johnson's, negative Rovsing's, negative peritoneal sign, 8) MUSCULOSKELETAL: Left upper extremity: Left index finger there is a lesion at her cuticle consistent with paronychia with no lymphangitic streaking. Negative kanavel sign. No evidence of deep space infection. No limitations in range of motion lymphangitic streaking. Left lower extremity: Left for 2nd and 3rd toes are amputated. There is dried blood at the left 5th toe with subacute wound with no signs of infection. No erythema. No crepitus. No tenderness. Right lower extremity: Right 2nd and 3rd toes are amputated. There is a wound in this space with scab, no open lesion, no pus with manipulation of the area or gentle exploration of the area. No lymphangitic streaking. 9) BACK: No CVA tenderness, no midline vertebral tenderness, no fluctuance, no step-off, no obvious trauma, no visual or palpable abnormality. 10) SKIN: No rash, no petechiae. 11) Psychiatric: Patient is oriented X 3, there is no agitation. DIFFERENTIAL DIAGNOSIS: In no particular order including but not limited to paronychia, infectious tenosynovitis, osteomyelitis, necrotizing fasciitis, cellulitis (Sade,Giovanni Sandi) Constitutional: Initial Vital Signs Temperature (C) 37.0 C 10/10/18 18:41 Heart Rate 86 10/10/18 18:41 Respiratory Rate 16 10/10/18 18:41 Blood Pressure 116/86 H 10/10/18 18:41 O2 Sat (%) 96 10/10/18 18:41 O2 Delivery Mode Room Air Allergies/Adverse Reactions: cefaclor [From [facility]] Allergy (Verified 10/10/18 08:24) Hives Home Medications: Medication Instructions Recorded FLUoxetine [Prozac 20 MG (*)] 80 mg PO DAILY 07/17/18 Insulin Detemir [Levemir] 50 unit SQ BID 07/17/18 Ipratropium [Atrovent Hfa (*)] 1 puffs IH DAILY 07/17/18 buPROPion SR [Wellbutrin 150mg SR 150 mg PO BID 07/17/18 (*)] traZODone [traZODone 150MG (*)] 150 mg PO HS 07/17/18 Albuterol [Proventil Inhaler HFA 2 puffs IH QID PRN #1 mdi 09/07/18 (*)] Beclomethasone Qvar 40 [Qvar 40 1 inh IH BID #1 mdi 09/07/18 Redihaler (*)] Lisinopril/Hydrochlorothiazide 1 each PO DAILY 09/07/18 [Zestoretic 20-25 mg Tablet] Ibuprofen [Motrin (*)] 200 mg PO DAILY PRN 10/10/18 oxyCODONE/APAP 5/325 [Percocet 1 tab PO Q4-6PRN PRN 10/10/18 5/325 (*)] Medical Decision Making Procedures: Procedure: Abscess drainage. The patient's paronychia was located on the left 2nd digit. I obtained verbal consent from the patient to drain the abscess who was informed about the possibility of bleeding and pain. Digital nerve block of 1% plain lidocaine placed by myself. The abscess was incised with a scalpel and a mild amount of purulent drainage was expressed. I irrigated the wound and placed some packing. The patient tolerated the procedure well. The procedure was performed by myself. (Giovanni Stuart) ED Course/Re-evaluation: Patient was sent to the emergency department for evaluation of paronychia to left index finger. This was incised and drained in the emergency department. She tolerated this procedure well see procedure note. The patient was also seen and evaluated by Dr. Shantelle Guerrero in the ER regarding her bilateral foot wounds. These are subacute wounds, there is no evidence of acute infection such as cellulitis. She has no crepitus, no lymphangitic streaking. Doubt necrotizing fasciitis. Doubt osteomyelitis. This time patient will be sent back to her inpatient psychiatric unit and recommended wound care follow the patient. (Giovanni Stuart) I have evaluated and participated in the management of this patient. My co- signature indicates that I have reviewed this chart and that I agree with the findings and the plan of care as documented. My personal history and physical findings include: Patient with h/o diabetes and chronic foot wound, s/p amputations of toes 2 and 3 bilaterally. Patient presented from wound clinic. She has a LIF paronychia that was I and D'ed by MARLON Stuart, as above. I examined her feet--left foot with dried blood at 5th toe, no warmth, streaking, drainage, or significant erythema. Right foot with scab/wound at site of amputations--no drainage expressed, area is tender to palpation, no streaking or warmth. I recommend continuing with wound care clinic. She does not appear systemically ill. Patient is currently being treated as inpatient on behavioral health floor. ( Shantelle Guerrero) Departure - Departure Disposition: [facility] IP Clinical Impression: Paronychia of left index finger Condition: Good Instructions: Paronychia (ED) Referrals: NONE *PRIMARY CARE P,. [Primary Care Provider] - As per Instructions
[2018-10-10 19:42] VITALS: BP 114/78
== END 2018-10-10 20:48 ==
LOC: EDUNIT#
PROC: 0P9 Upper Bones, Drainage (ICD-10-PCS; principal; 2018-10-10)
DX: L03.012 Cellulitis of left finger (principal); I10 Essential (primary) hypertension; J44.9 Chronic obstructive pulmonary disease, unspecified; G62.9 Polyneuropathy, unspecified; E11.9 Type 2 diabetes mellitus without complications; F32.9 Major depressive disorder, single episode, unspecified; F25.0 Schizoaffective disorder, bipolar type; Z89.421 Acquired absence of other right toe(s); Z89.422 Acquired absence of other left toe(s)